=== PATIENT | male | born 1985 | race African-American/Black ===

== ENCOUNTER → 2016-12-12 | Outpatient (CLI) | payer OTHER ==
[~2016-12-12] MED LIST: ADVIL100 M2 PO; DOXYCYCLINE 10100 MG PO; NORCO 5-325 TA1 EACH PO; ULTRAM 50MG TAB50 MG PO
== END ==
LOC: HYPER 07:06
DX: L03.032 Cellulitis of left toe (principal); L03.031 Cellulitis of right toe; F17.210 Nicotine dependence, cigarettes, uncomplicated; Z72.89 Other problems related to lifestyle

== ENCOUNTER 2017-01-26 13:31 | Inpatient (IN) | payer OTHER ==
[~2017-01-26] VITALS: Ht 152.4 cm; Wt 72.6 kg
--- NOTE | ~2017-01-26 | HC ---
[facility] [place] [address] CONSULTATION Name: REBECCA JORDAN JR Room #: 302-P ADM IN M.R.#: [id number] Admission: 01/26/17 Attend Phys: Maldonado Luciano MD Discharge: Date of : 83 Report #: [id number] THIS REPORT FOR: //name// CC: Radha Zhong DATE OF SERVICE: 01/27/2017 CONSULTATION: Infectious diseases. HISTORY OF PRESENT ILLNESS: MR Rogelio JORDAN is a 31-year-old -[place] male admitted to [facility] because of cellulitis in the feet. The patient has a longstanding skin disease in the feet described as tinea. He has been on a number of bgvt-cck-uosbcrf and prescription medications including topical as well as oral. He says nothing seems to help. The patient's disease is mostly between his toes. He has developed a wet, weepy breakdown in the web spaces in both feet. The patient presented to the hospital with acute foot pain with evidence of secondary cellulitis on the dorsum of the left foot. Infectious Disease consultation was requested to assist with the evaluation and management. PAST MEDICAL HISTORY: Significant for seizure disorder, although the patient denies having any seizures; strabismus which was corrected with surgery. The patient is on Lamictal, but denies any mental health issues. He says he is otherwise, except for his feet, in good health without any ongoing medical problems. ALLERGIES: The patient notes medical allergies to RISPERIDONE AND MORPHINE. FAMILY HISTORY: Noncontributory. SOCIAL HISTORY: The patient is single. He lives by himself. He works in a warehouse. He is required to wear closed hard-toed shoes at work. He notes that the socks become rather saturated in the course of the day. He does smoke cigarettes about a pack per day. His alcohol consumption he describes as social. REVIEW OF SYSTEMS: GENERAL: Negative for fevers, chills or sweats. HEAD, CHEST, GASTROINTESTINAL AND GENITOURINARY: Negative for problems. NEUROLOGIC: Denies any mental health problems. Denies any seizures. EXTREMITIES: He noted significant pain in his feet, which has improved since coming to the hospital yesterday. PHYSICAL EXAMINATION: GENERAL: The patient appears his stated age, alert, oriented and comfortable, [facility] [address] [place] [address] CONSULTATION Name: REBECCA JORDAN Room #: 302-P [facility] IN M.R.#: [id number] Admission: 01/26/17 Attend Phys: Maldonado Luciano MD Discharge: Date of : 83 Report #: [id number] not in any distress. VITAL SIGNS: Show the patient has been afebrile since admission, blood pressure 105/59. SKIN: Shows no rash, lesion or exanthem except in the feet as described below. EARS, NOSE AND THROAT: Negative. HEART, LUNGS AND ABDOMEN: Normal. NEUROLOGIC: Mental status seems appropriate. The patient is a bit sleepy or slow, but I did wake him from sleep this morning. EXTREMITIES: The feet show general normal shape. Pulses are easy to palpate. The nails appear to be in good repair. There is significant breakdown full thickness in the web spaces on the right foot between the third and fourth toes and the fourth and fifth toes. On the left foot, there is more extensive breakdown in the first and second webspace, second and third webspace and third and fourth webspace. There is an ink ross going from the webspace up the dorsum of the foot to just short of the ankle, presumably representing an area of cellulitis. This area is not red nor warm. It is somewhat darker than the surrounding skin, and has a bit of desquamating epithelium; however, I would not characterize this as an acute cellulitis at this time. There are some tinea-type changes between the toes, but the soles of the feet are remarkably normal in terms of the appearance of the skin. There is a plantar wart or callus on the right first metatarsal phalangeal head. LABORATORY DATA: White count is 16.5 and hemoglobin 13.5. Electrolytes, BUN, creatinine and liver function tests are normal. Random sugar is 99. Hemoglobin A1c is 4.4. Blood culture is so far negative at less than 24 hours. Culture from the foot is growing gram-negative organisms. MRI showed normal internal structure without any evidence of osteomyelitis. IMPRESSION: In summary, the patient with chronic dermatitis with breakdown in the webspaces and secondary cellulitis. I doubt if this represents methicillin-resistant Staphylococcus aureus. This could be Staphylococcus or Streptococcus. If the feet are continuously wet from the discharge, gram negatives would not be unexpected. I would like to stop the vancomycin, discontinue the vancomycin level. He does use cefepime. I anticipate that the patient is probably going to be changed to oral antibiotics tomorrow. If the culture shows Pseudomonas, Cipro would be a good choice; otherwise, would use something like Ceftin or Bactrim. I would like to use itraconazole 200 mg daily by mouth for wound care. For topical care, I would like to use Aquacel rope going above and below the toes in a snake-like fashion. This would help absorb the drainage, and the silver cations would be antiseptic to facilitate wound healing. We should use gauze for any excess drainage and Kerlix to secure the dressing. This should be done twice a day to try to keep the area relatively dry. [facility] [address] [place] [address] CONSULTATION Name: REBECCA JORDAN Room #: 302-P ADM IN M.R.#: [id number] Admission: 01/26/17 Attend Phys: Maldonado Luciano MD Discharge: Date of : 83 Report #: [id number] I suggested that the patient when at work, plan to change his socks and Aquacel dressing often enough to keep it from getting wet and macerated, so probably involve a change during his lunch break as well as at the end of work. When he is not required to wear closed-toe shoes, he should wear a footwear that has excellent ventilation such as tennis shoes, clogs or even better open-toed sandals. I strongly recommended tobacco reduction or cessation to try to improve skin and wound healing. When the acute lesions have resolved, it may be worthwhile to do additional diagnostic studies to try to figure out why the patient has this recurring dermatitis. Skin scrapings for dermatophytes as well as possibly even a biopsy may be indicated; however, at this time, with acute inflammation, I do not think these studies would be diagnostic. I appreciate the opportunity to offer input in the care of the patient. Hopefully, he will improve enough so we can send him home tomorrow on oral antibiotics and these topical cares. He may want to follow up with the wound care. We may want to make arrangements with home medical provider to obtain the Aquacel rope for ongoing dressing changes. I appreciate the opportunity to offer input in the care of the patient. I would be happy to follow him through the weekend. Dr. Tyson returns on Sunday. ADDENDUM: Conversation with Dr Nielson. The outpatient cultures have grown pseudomonas and MRSA. I will restart Vanco. <ELECTRONICALLY SIGNED> By: Khurram Soto MD 01/28/17 1133 [id number] Khurram Soto MD /nt
--- NOTE | ~2017-01-26 | HC ---
[facility] [place] [address] CONSULTATION Name: REBECCA JORDAN JR Room #: 302-P [facility] IN M.R.#: [id number] Admission: 01/26/17 Attend Phys: Rebecca Sutton DO Discharge: 01/30/17 Date of : 83 Report #: [id number] THIS REPORT FOR: //name// CC: Rebecca Zhong DATE OF SERVICE: 01/29/2017 PERSONAL PHYSICIAN: Genaro Zhong MD CHIEF COMPLAINT: Left foot rash. HISTORY OF PRESENT ILLNESS: This is a 31-year-old black male who was admitted to [facility] for cellulitis of his left foot. The patient states he has a longstanding history of athlete's foot, which has been treated with nihs-ukh-oklpoag and prescription medicines. the patient states that nothing seems to have helped. The patient states that the foot is constantly wet and weeping, mostly between the toes and recently he has had increasing amount of pain and swelling, which prompted him to come to the hospital to be evaluated. The patient was admitted for cellulitis of the foot. Infectious disease is seeing the patient as well. PAST MEDICAL HISTORY: Significant for history of a seizure disorder. CURRENT MEDICATIONS: Include Lamictal. DRUG ALLERGIES: RISPERIDONE and MORPHINE. FAMILY HISTORY: Not pertinent to current medical condition. SOCIAL HISTORY: He smokes approximately 1 pack of cigarettes daily and drinks alcohol occasionally. REVIEW OF SYSTEMS: CONSTITUTIONAL: The patient denies fevers or chills. NEUROLOGIC: The patient denies numbness, tingling, or weakness in arms or legs. EYES: No complaints. ENT: No complaints. CARDIAC: The patient denies chest pain, palpitations, or peripheral edema. RESPIRATORY: The patient denies shortness of breath, cough, or wheezes. GASTROINTESTINAL: The patient denies nausea, vomiting, or abdominal pain. GENITOURINARY: The patient denies urgency or frequency. MUSCULOSKELETAL: No complaints. SKIN: The patient has what appears to be a fungal rash on his left foot on the dorsal aspect. [address] [address] CONSULTATION Name: REBECCA JORDAN JR Room #: 302-P [facility] IN M.R.#: [id number] Admission: 01/26/17 Attend Phys: Rebecca Sutton DO Discharge: 01/30/17 Date of : 83 Report #: [id number] PHYSICAL EXAMINATION: VITAL SIGNS: Stable. The patient is afebrile. GENERAL: This is an alert and oriented x3, ____ black male who is in no acute distress. HEENT: Normocephalic, atraumatic. Mucous membranes are moist. Pupils are round. Sclerae are white. NECK: Without JVD or masses. LUNGS: Clear. HEART: Regular without murmur. ABDOMEN: Soft and nontender. EXTREMITIES: The patient moves all extremities without difficulty. Evaluation of left lower extremity reveals 2+ dorsalis pedis and posterior tibial pulse. On the dorsal aspect of the left foot, there is an area of resolving erythema with denuded skin noted over that site. The toes themselves have significant amount of denuded skin as well with also weeping yellowish serous fluid. There are no signs of any purulence or fluctuance. His foot is somewhat tender to palpation. There is minimal involvement of the plantar aspect of the foot. The right lower extremity reveals no signs of any open wounds and bilateral heels are intact. NEUROLOGIC: Cranial nerves 2-12 are grossly intact. Motor and sensory grossly intact. LABORATORY VALUES: White count 9.6, hemoglobin 12.8, albumin slightly low at 3.1. WOUND CARE COURSE: I spoke at length with the patient ____, I think the patient would do well with pulse lavage to the left foot to help clean up the denuded tissue. He is agreeable of doing this. We will give the patient 2 mg of IV Dilaudid prior to the procedure to be done, so he can tolerate the procedure. Afterwards we will do Silvadene, Xeroform, ABD and Kerlix and Gal to the site. Infectious disease has already started him on appropriate antifungal medicines. We will continue to follow the patient. IMPRESSION: 1. Cellulitis of the left dorsal foot secondary to #2. 2. Chronic tinea pedis. 3. Mild protein-calorie malnutrition with albumin of 3.1. PLAN: Once again described in length as above. I appreciate the ability to consult. By: [id number] Quique Cannon MD /nt
--- NOTE | ~2017-01-26 | HC ---
[facility] [place] [address] CONSULTATION Name: REBECCA JORDAN JR Room #: 302-P ADM IN M.R.#: [id number] Admission: 01/26/17 Attend Phys: Rebecca Sutton DO Discharge: Date of : 83 Report #: [id number] THIS REPORT FOR: //name// CC: Radha Zhong DATE OF SERVICE: 01/27/2017 CONSULTATION: Podiatry. HISTORY OF PRESENT ILLNESS: The patient is a 31-year-old -[place]i male who was admitted to [facility] on 01/26/2017 for cellulitis and severe tinea that was not resolving with outpatient care. He was being followed closely as an outpatient by myself, Dr. Hardwick and was also being seen by Dermatology. He had tried many hikl-kdt-irkjqny prescription medications prior to being seen, he was then doing oral antifungal and antibiotic without it resolving. Due to the amount of wet weepy sloughing skin along with the amount of pain and worsening along the top of the foot, I recommended direct admission to the hospital for further workup by Infectious Disease and IV antibiotics. Lower extremity physical exam, there was palpable pedal pulses. There is CFT brisk to all toes. Light touch sensation intact to pedal dermatomes. There was severe interdigital tinea to all webspaces on the left foot with sloughing of tissues to the toes extending to the sulcus aspect with breakdown of full thickness to dermis. There is no fluctuance, abscess or probing to bone. The area to the top of the foot was marked with ink to closely observe the cellulitis, but has not worsened from yesterday's exam. In fact, has decreased in the amount of swelling, drainage and redness. No other breaks in the skin or signs of infection. There is some mild tinea in the right fourth interspace. LABORATORY DATA: The white blood cell count was 16.5 on admission. The blood cultures were negative. Previous cultures prior to admission grew E. coli, MRSA and pseudomonas. The MRI done yesterday showed was within normal limits. IMPRESSION: Left foot with severe tinea infection with secondary bacteria and cellulitis. PLAN: I discussed the patient's condition with him in detail. On exam today, prior to his admission yesterday, the foot has improved overall and is decreased in drainage, swelling and redness. His wound was recultured and Infectious Disease is on board with antibiotics. For topical care, he was switched to Aquacel Ag and will use interdigitally to help absorb the drainage. He will continue in the surgical shoe he has at bedside with limited weightbearing. [address] [address] CONSULTATION Name: REBECCA JORDAN JR Room #: 302-P [facility] IN M.R.#: [id number] Admission: 01/26/17 Attend Phys: Rebecca Sutton DO Discharge: Date of : 83 Report #: [id number] He will continue to be off work at this time with rest and elevation and keeping the left foot dry. I will follow him as an outpatient and he is aware and will call to schedule when discharged. I answered all his questions or concerns. <ELECTRONICALLY SIGNED> By: Pati Hardwick DPM 01/30/17 1735 [id number] Pati Hardwick DPM /nt
[2017-01-26] MEDS ORDERED: LAMICTAL100 MG PO (14:11)
[2017-01-26] MEDS ORDERED: CIPRO250 M1 PO (14:11)
[2017-01-26] MEDS ORDERED: PREDNISONE 10 M10 MG PO (14:12)
[2017-01-26] MEDS ORDERED: ONEXTON 1.2%-33.5 GM TP (14:13)
[2017-01-26 15:15] LABS: HEMOGLOBIN 13.5 gm/dL (14.0-18.0); MCH 31.4 pg (26.0-34.0); MCHC 32.8 g/dL (28.0-37.0); MCV 95.8 fL (80.0-100.0); RBC 4.28 mil/uL (4.50-6.00); RDW 13.9 % (10.5-14.5); WBC 16.5 thou/uL (4.0-11.0)
[2017-01-26 15:26] LABS: ANION GAP 6 mmol/L (7-16); BUN 24 mg/dL (7-18); CALCIUM 8.9 mg/dL (8.5-10.1); CHLORIDE 108 mmol/L (98-107); CO2 26 mmol/L (21-32); GLUCOSE 99 mg/dL (74-106); POTASSIUM 4.3 mmol/L (3.5-5.1); SODIUM 140 mmol/L (136-145)
[2017-01-26 15:31] LABS: ALBUMIN 3.9 g/dL (3.4-5.0); ALKALINE PHOSPHATASE 68 U/L (46-116); CHOLESTEROL 132 mg/dL (<200); HDL CHOLESTEROL 62 mg/dL (>40); LDL CHOLESTEROL 60 mg/dL (<100); SGOT 19 U/L (15-37); SGPT 29 U/L (30-65); TC:HDL 2.1 Ratio (Not establshd); TOTAL BILIRUBIN 0.5 mg/dL (<0.1-1.0); TOTAL PROTEIN 6.7 g/dL (6.4-8.2); TRIGLYCERIDE 51 mg/dL (<150); VLDL 10 mg/dL (<40)
[2017-01-26 19:45] VITALS: BP 110/64
[2017-01-26 23:15] VITALS: BP 106/63
[2017-01-27 02:10] LABS: GLYCOHEMOGLOBIN (HGB A1C) 4.4 % (4.8-5.6)
[2017-01-27 03:45] VITALS: BP 105/59
[2017-01-27 09:10] VITALS: BP 107/69
[2017-01-27 16:01] VITALS: BP 112/64
[2017-01-27 19:40] VITALS: BP 120/52
[2017-01-28 03:40] VITALS: BP 99/63
[2017-01-28 05:01] LABS: ABSOLUTE NEUTROPHILS 5.1 thou/uL (1.4-8.2); BASOPHILS 0.4 % (0.0-2.0); EOSINOPHILS 4.7 % (0.0-3.0); HEMATOCRIT 38.5 % (42.0-52.0); HEMOGLOBIN 12.8 gm/dL (14.0-18.0); LYMPHOCYTES 32.4 % (24.0-44.0); MCH 31.5 pg (26.0-34.0); MCHC 33.2 g/dL (28.0-37.0); MCV 94.9 fL (80.0-100.0); MONOCYTES 8.8 % (1.0-8.0); PLATELET COUNT 189 thou/uL (150-400); POLYS 53.7 % (36.0-66.0); RBC 4.06 mil/uL (4.50-6.00); RDW 13.8 % (10.5-14.5); WBC 9.6 thou/uL (4.0-11.0)
[2017-01-28 05:05] LABS: MANUAL DIFF NO
[2017-01-28 05:14] LABS: ALBUMIN 3.1 g/dL (3.4-5.0); CALCIUM 8.5 mg/dL (8.5-10.1); CREATININE 0.8 mg/dL (0.7-1.3); POTASSIUM 4.2 mmol/L (3.5-5.1); TOTAL BILIRUBIN 0.6 mg/dL (<0.1-1.0); TOTAL PROTEIN 5.8 g/dL (6.4-8.2)
[2017-01-28 15:05] VITALS: BP 121/73
[2017-01-28 19:42] VITALS: BP 109/62
[2017-01-29 04:17] VITALS: BP 99/57
[2017-01-29 09:10] VITALS: BP 117/75
[2017-01-29 17:42] VITALS: BP 117/75
[2017-01-29 19:41] VITALS: BP 94/55
[2017-01-30 02:56] VITALS: BP 101/63
[2017-01-30 07:25] VITALS: BP 102/55
[2017-01-30] MEDS ORDERED: ONMEL200 MG PO (12:43)
[2017-01-30] MEDS ORDERED: ZOSYN 3.3753.375 GM IV ×2 (12:44→14:22)
[2017-01-30] MEDS ORDERED: MINOCIN100 MG PO (15:40)
== END 2017-01-30 18:05 | disposition home health service (06) | DRG 602 ==
LOC: 3N 13:31
PROVIDERS: Hospitalist; Internal Medicine Infectious Disease; Nurse Practitioner Family
PROC: B548ZZA Ultrasonography of Superior Vena Cava, Guidance (ICD-10-PCS; principal; 2017-01-29)
PROC: 02HV33Z Insertion of Infusion Device into Superior Vena Cava, Percutaneous Approach (ICD-10-PCS; principal; 2017-01-29)
DX: L03.116 Cellulitis of left lower limb (principal); E43 Unspecified severe protein-calorie malnutrition; G40.909 Epilepsy, unspecified, not intractable, without status epilepticus; L30.9 Dermatitis, unspecified; F17.210 Nicotine dependence, cigarettes, uncomplicated; M14.679 Charcot's joint, unspecified ankle and foot; B35.3 Tinea pedis; B96.5 Pseudomonas (aeruginosa) (mallei) (pseudomallei) as the cause of diseases classified elsewhere; B95.2 Enterococcus as the cause of diseases classified elsewhere; Z68.31 Body mass index [BMI] 31.0-31.9, adult; Z88.8 Allergy status to other drugs, medicaments and biological substances; Z88.6 Allergy status to analgesic agent; Z79.899 Other long term (current) drug therapy
CPT/HCPCS: 10096; 27000

== ENCOUNTER → 2017-08-16 | Outpatient (CLI) | payer OTHER ==
[~2017-08-16] MED LIST changes: +CIPRO250 M1 PO; +LAMICTAL100 MG PO; +MINOCIN100 MG PO; +ONEXTON 1.2%-33.5 GM TP; +ONMEL200 MG PO; +PREDNISONE 10 M10 MG PO; +ZOSYN 3.3753.375 GM IV
== END ==
LOC: HYPER 08-13 07:09
DX: S91.301D Unspecified open wound, right foot, subsequent encounter (principal); S91.302D Unspecified open wound, left foot, subsequent encounter; L03.032 Cellulitis of left toe; L03.031 Cellulitis of right toe; F17.200 Nicotine dependence, unspecified, uncomplicated; Z72.89 Other problems related to lifestyle; X58.XXXD Exposure to other specified factors, subsequent encounter